=== PATIENT | male | born 1955 | race Caucasian/White ===

== ENCOUNTER 2022-01-26 22:46 | Inpatient (IN) | payer MEDICARE ==
[2022-01-26] MEDS ORDERED: Calcium Carbonate 500 MG ChewTAB PO PRN (22:48)
[2022-01-26] MEDS ORDERED: Ondansetron PF 4 MG/2 ML Vial IVP PRN (22:48)
[2022-01-27] MEDS ORDERED: metroNIDAZOLE 500 MG in Premix Bag 1 BAG IVPB SCH (06:00)
[2022-01-27 07:05] LABS: #Basophils 0.1 10x3/uL (0.0-0.2); #Eosinphils 0.7 10x3/uL (0.0-0.5); #Monocytes 0.8 10x3/uL (0.0-1.1); #Neutrophils 6.8 10x3/uL (1.5-8.4); %Basophils 0.6 % (0.0-2.0); %Eosinophils 7.3 % (0.0-6.0); %Monocytes 9.3 % (0.0-10.0); %Neutrophils 75.6 % (40.0-75.0); ALT (SGPT) 8 U/L (8-55); AST (SGOT) 21 U/L (5-34); Alkaline Phosphatase 55 U/L (40-110); Anion Gap 14 mmol/L (10-20); BUN (Urea Nitrogen) 21 mg/dL (8.4-25.7); Bilirubin, Total 0.4 mg/dL (0.2-1.2); Calc. Creatinine Clearance 54 mL/min (70-130); Calcium 8.1 mg/dL (7.8-10.44); Carbon Dioxide 25 mmol/L (23-31); Cardiac Risk 2.4 (Less than 4.5); Chloride 109 mmol/L (98-107); Cholesterol 116 mg/dl (< 200 Desired); Globulin 1.5 g/dL (2.4-3.5); Glucose 71 mg/dL (80-115); HDL Cholesterol 48 mg/dL (>60 Neg Risk); Hemoglobin 11.2 g/dL (13.5-17.5); LDL Cholesterol, Calculated 52 mg/dL; Mean Corpuscular HGB CONC 34.5 g/dL (32.0-36.0); Mean Corpuscular Hemoglobin 29.6 pg (27.0-33.0); Mean Corpuscular Volume 85.8 fl (81.2-95.1); Mean Platelet Volume 12.4 fl (7.4-10.4); Platelet Count 131 10x3/uL (150-450); Potassium 3.6 mmol/L (3.5-5.1); Protein, Total 4.5 g/dL (5.8-8.1); RBC Distribution Width 14.7 % (11.5-14.5); Red Blood Cell (RBC) Count 3.79 10x6/uL (4.32-5.72); Sodium 144 mmol/L (136-145); Triglycerides 78 mg/dL (Less than 150)
[2022-01-27 07:06] LABS: CK (CPK) 59 U/L (30-200); CRP (Inflammatory) 9.15 mg/dL (= or < 0.5); Magnesium 1.6 mg/dL (1.6-2.6)
[2022-01-27 08:04] LABS: CKMB 9.1 ng/mL (0-6.6)
[2022-01-27] MEDS: Carvedilol 6.25 MG TAB PO SCH ×2 (08:28→16:32)
[2022-01-27] MEDS: Enoxaparin Sodium 80 MG/0.8 ML SYRINGE SC SCH ×2 (08:29→20:41)
[2022-01-27] MEDS: FLUoxetine HCl 20 MG CAP PO SCH (08:29)
[2022-01-27] MEDS: Allopurinol 100 MG TAB PO SCH (08:29)
[2022-01-27] MEDS: Aspirin 81 mg Enteric Coated Tablet PO SCH (08:29)
[2022-01-27] MEDS ORDERED: cefTRIAXone\\ROCEPHIN 2 GM in Sodium Chloride 0.9% 100 ML IVPB SCH (09:00)
[2022-01-27] MEDS ORDERED: Clopidogrel Bisulfate 75 MG TAB PO SCH (09:00)
[2022-01-27] MEDS: Vancomycin 25 MG/ML Oral SOLN PO SCH ×2 (12:07→17:25)
[2022-01-27] MEDS ORDERED: hydrALAZINE 20 MG/ML VIAL SLOW IVP PRN (15:08)
[2022-01-27] MEDS: Rosuvastatin 20 MG TAB PO SCH (20:41)
[2022-01-27] MEDS: Tamsulosin HCl 0.4 MG CAP PO SCH (20:41)
[2022-01-28] MEDS: Vancomycin 25 MG/ML Oral SOLN PO SCH ×4 (01:05→17:00)
[2022-01-28 04:43] LABS: #Basophils 0.1 10x3/uL (0.0-0.2); #Eosinphils 0.5 10x3/uL (0.0-0.5); #Monocytes 0.6 10x3/uL (0.0-1.1); #Neutrophils 2.8 10x3/uL (1.5-8.4); %Eosinophils 10.6 % (0.0-6.0); %Lymphocytes 20.2 % (18.0-47.0); %Monocytes 12.5 % (0.0-10.0); %Neutrophils 55.3 % (40.0-75.0); Hemoglobin 9.9 g/dL (13.5-17.5); Mean Corpuscular HGB CONC 32.7 g/dL (32.0-36.0); Mean Corpuscular Hemoglobin 28.9 pg (27.0-33.0); Mean Corpuscular Volume 88.3 fl (81.2-95.1); Mean Platelet Volume 12.4 fl (7.4-10.4); Platelet Count 130 10x3/uL (150-450); RBC Distribution Width 14.1 % (11.5-14.5); Red Blood Cell (RBC) Count 3.43 10x6/uL (4.32-5.72); White Blood Cell (WBC) Count 5.1 10x3/uL (3.5-10.5)
[2022-01-28 04:58] LABS: Anion Gap 13 mmol/L (10-20); BUN (Urea Nitrogen) 17 mg/dL (8.4-25.7); Calc. Creatinine Clearance 61 mL/min (70-130); Calcium 8.1 mg/dL (7.8-10.44); Carbon Dioxide 24 mmol/L (23-31); Chloride 108 mmol/L (98-107); Glucose 71 mg/dL (80-115); Potassium 3.5 mmol/L (3.5-5.1); Sodium 141 mmol/L (136-145)
[2022-01-28] MEDS: Carvedilol 6.25 MG TAB PO SCH ×2 (08:12→17:00)
[2022-01-28] MEDS: Aspirin 81 mg Enteric Coated Tablet PO SCH (08:12)
[2022-01-28] MEDS: Allopurinol 100 MG TAB PO SCH (08:12)
[2022-01-28] MEDS: FLUoxetine HCl 20 MG CAP PO SCH (08:12)
[2022-01-28] MEDS: Enoxaparin Sodium 80 MG/0.8 ML SYRINGE SC SCH ×2 (08:12→21:56)
[2022-01-28] MEDS ORDERED: Enoxaparin Sodium 80 MG/0.8 ML SYRINGE ONE (08:14)
[2022-01-28] MEDS ORDERED: Potassium Chloride 20 MEQ TAB PO SCH (12:00)
[2022-01-28] MEDS: Rosuvastatin 20 MG TAB PO SCH (21:56)
[2022-01-28] MEDS: Tamsulosin HCl 0.4 MG CAP PO SCH (21:56)
[2022-01-29] MEDS: Vancomycin 25 MG/ML Oral SOLN PO SCH ×5 (00:25→23:11)
[2022-01-29 05:23] LABS: #Eosinphils 0.3 10x3/uL (0.0-0.5); #Monocytes 0.4 10x3/uL (0.0-1.1); #Neutrophils 1.7 10x3/uL (1.5-8.4); %Basophils 0.8 % (0.0-2.0); %Eosinophils 9.6 % (0.0-6.0); %Lymphocytes 30.1 % (18.0-47.0); %Monocytes 12.4 % (0.0-10.0); %Neutrophils 46.8 % (40.0-75.0); Hemoglobin 10.7 g/dL (13.5-17.5); Mean Corpuscular HGB CONC 34.7 g/dL (32.0-36.0); Mean Corpuscular Hemoglobin 29.2 pg (27.0-33.0); Mean Corpuscular Volume 83.9 fl (81.2-95.1); Mean Platelet Volume 12.4 fl (7.4-10.4); Platelet Count 153 10x3/uL (150-450); RBC Distribution Width 14.1 % (11.5-14.5); Red Blood Cell (RBC) Count 3.67 10x6/uL (4.32-5.72); White Blood Cell (WBC) Count 3.6 10x3/uL (3.5-10.5)
[2022-01-29 05:27] LABS: Anion Gap 13 mmol/L (10-20); BUN (Urea Nitrogen) 14 mg/dL (8.4-25.7); Calc. Creatinine Clearance 67 mL/min (70-130); Calcium 8.2 mg/dL (7.8-10.44); Carbon Dioxide 25 mmol/L (23-31); Chloride 108 mmol/L (98-107); Glucose 72 mg/dL (80-115); Potassium 3.7 mmol/L (3.5-5.1); Sodium 142 mmol/L (136-145)
[2022-01-29] MEDS: Allopurinol 100 MG TAB PO SCH (08:57)
[2022-01-29] MEDS: Enoxaparin Sodium 80 MG/0.8 ML SYRINGE SC SCH ×2 (08:57→21:48)
[2022-01-29] MEDS: HYDROcodone/Acetaminophen 5/325 mg Tablet PO PRN (08:57)
[2022-01-29] MEDS: FLUoxetine HCl 20 MG CAP PO SCH (08:57)
[2022-01-29] MEDS: Carvedilol 6.25 MG TAB PO SCH ×2 (08:57→16:04)
[2022-01-29] MEDS: Aspirin 81 mg Enteric Coated Tablet PO SCH (08:58)
[2022-01-29] MEDS ORDERED: Magnesium 2 GM/50 ML(in water) 2 GM in Premix Bag 1 BAG IVPB SCH (12:00)
[2022-01-29] MEDS ORDERED: Potassium Chloride 20 MEQ TAB PO SCH (12:00)
[2022-01-29] MEDS: Rosuvastatin 20 MG TAB PO SCH (21:48)
[2022-01-29] MEDS: Tamsulosin HCl 0.4 MG CAP PO SCH (21:48)
[2022-01-30 05:25] LABS: #Eosinphils 0.3 10x3/uL (0.0-0.5); #Monocytes 0.3 10x3/uL (0.0-1.1); #Neutrophils 1.6 10x3/uL (1.5-8.4); %Basophils 1.2 % (0.0-2.0); %Eosinophils 7.2 % (0.0-6.0); %Lymphocytes 35.5 % (18.0-47.0); %Monocytes 9.8 % (0.0-10.0); Hemoglobin 10.7 g/dL (13.5-17.5); Mean Corpuscular HGB CONC 35.4 g/dL (32.0-36.0); Mean Corpuscular Hemoglobin 29.5 pg (27.0-33.0); Mean Corpuscular Volume 83.2 fl (81.2-95.1); Mean Platelet Volume 11.9 fl (7.4-10.4); Platelet Count 173 10x3/uL (150-450); RBC Distribution Width 13.8 % (11.5-14.5); Red Blood Cell (RBC) Count 3.63 10x6/uL (4.32-5.72); White Blood Cell (WBC) Count 3.5 10x3/uL (3.5-10.5)
[2022-01-30] MEDS: Vancomycin 25 MG/ML Oral SOLN PO SCH ×4 (05:27→23:51)
[2022-01-30 05:39] LABS: Anion Gap 11 mmol/L (10-20); BUN (Urea Nitrogen) 12 mg/dL (8.4-25.7); Calc. Creatinine Clearance 70 mL/min (70-130); Calcium 8.1 mg/dL (7.8-10.44); Carbon Dioxide 27 mmol/L (23-31); Chloride 108 mmol/L (98-107); Glucose 86 mg/dL (80-115); Potassium 3.3 mmol/L (3.5-5.1); Sodium 143 mmol/L (136-145)
[2022-01-30] MEDS: FLUoxetine HCl 20 MG CAP PO SCH (08:42)
[2022-01-30] MEDS: Enoxaparin Sodium 80 MG/0.8 ML SYRINGE SC SCH ×2 (08:42→20:42)
[2022-01-30] MEDS: HYDROcodone/Acetaminophen 5/325 mg Tablet PO PRN (08:42)
[2022-01-30] MEDS: Amlodipine 5 MG TAB PO SCH (08:42)
[2022-01-30] MEDS: Allopurinol 100 MG TAB PO SCH (08:43)
[2022-01-30] MEDS: Aspirin 81 mg Enteric Coated Tablet PO SCH (08:43)
[2022-01-30] MEDS: Lisinopril 20 MG TAB PO SCH ×2 (08:43→20:56)
[2022-01-30] MEDS: Carvedilol 6.25 MG TAB PO SCH ×2 (08:43→16:39)
[2022-01-30] MEDS ORDERED: Non-Formulary Medication 1 EACH (Hydralazine Hcl [Hydralazine Hcl] 50 MG Tablet) PO SCH (09:00)
[2022-01-30] MEDS ORDERED: Potassium Chloride 20 MEQ TAB PO SCH (09:00)
[2022-01-30 09:09] LABS: Magnesium 1.7 mg/dL (1.6-2.6)
[2022-01-30] MEDS: Tamsulosin HCl 0.4 MG CAP PO SCH (20:42)
[2022-01-30] MEDS: Rosuvastatin 20 MG TAB PO SCH (20:43)
[2022-01-31] MEDS: Vancomycin 25 MG/ML Oral SOLN PO SCH ×3 (05:00→17:28)
[2022-01-31 05:27] LABS: Anion Gap 13 mmol/L (10-20); BUN (Urea Nitrogen) 14 mg/dL (8.4-25.7); Calc. Creatinine Clearance 73 mL/min (70-130); Carbon Dioxide 26 mmol/L (23-31); Chloride 107 mmol/L (98-107); Potassium 3.6 mmol/L (3.5-5.1); Sodium 142 mmol/L (136-145)
[2022-01-31 05:28] LABS: Calcium 8.4 mg/dL (7.8-10.44); Glucose 80 mg/dL (80-115)
[2022-01-31] MEDS ORDERED: Magnesium 2 GM/50 ML(in water) 2 GM in Premix Bag 1 BAG IVPB SCH (08:15)
[2022-01-31] MEDS: Carvedilol 6.25 MG TAB PO SCH ×2 (09:21→17:27)
[2022-01-31] MEDS: FLUoxetine HCl 20 MG CAP PO SCH (09:21)
[2022-01-31] MEDS: Amlodipine 5 MG TAB PO SCH (09:22)
[2022-01-31] MEDS: Aspirin 81 mg Enteric Coated Tablet PO SCH (09:22)
[2022-01-31] MEDS: Allopurinol 100 MG TAB PO SCH (09:23)
[2022-01-31] MEDS: Lisinopril 20 MG TAB PO SCH ×2 (09:23→21:45)
[2022-01-31] MEDS: Enoxaparin Sodium 80 MG/0.8 ML SYRINGE SC SCH ×2 (09:23→21:44)
[2022-01-31] MEDS ORDERED: Amlodipine 5 MG TAB PO SCH (10:30)
[2022-01-31] MEDS ORDERED: Potassium Chloride 20 MEQ TAB PO SCH (13:45)
[2022-01-31] MEDS: Tamsulosin HCl 0.4 MG CAP PO SCH (21:44)
[2022-01-31] MEDS: Rosuvastatin 20 MG TAB PO SCH (21:45)
[2022-01-31 23:37] LABS: Mycoplasma pneumoniae IgG AB 271 U/mL (0-99); Mycoplasma pneumoniae IgM AB Less than 770 U/mL (0-769)
[2022-02-01] MEDS: Vancomycin 25 MG/ML Oral SOLN PO SCH ×4 (00:42→18:35)
[2022-02-01] MEDS: Amlodipine 5 MG TAB PO SCH (08:00)
[2022-02-01] MEDS: Carvedilol 6.25 MG TAB PO SCH ×2 (08:00→18:35)
[2022-02-01] MEDS: Aspirin 81 mg Enteric Coated Tablet PO SCH (08:00)
[2022-02-01] MEDS: FLUoxetine HCl 20 MG CAP PO SCH (08:01)
[2022-02-01] MEDS: Enoxaparin Sodium 80 MG/0.8 ML SYRINGE SC SCH ×2 (08:01→21:08)
[2022-02-01] MEDS: Allopurinol 100 MG TAB PO SCH (08:01)
[2022-02-01] MEDS: Lisinopril 20 MG TAB PO SCH ×2 (08:01→21:08)
[2022-02-01] MEDS: Amlodipine 10 MG TAB PO SCH (09:42)
[2022-02-01] MEDS ORDERED: Potassium Chloride 20 MEQ TAB PO SCH (10:15)
[2022-02-01] MEDS: Rosuvastatin 20 MG TAB PO SCH (21:08)
[2022-02-01] MEDS: Tamsulosin HCl 0.4 MG CAP PO SCH (21:08)
[2022-02-02] MEDS: Vancomycin 25 MG/ML Oral SOLN PO SCH ×5 (00:51→23:32)
[2022-02-02 10:00] LABS: Mean Corpuscular HGB CONC 34.5 g/dL (32.0-36.0); Mean Corpuscular Hemoglobin 29.1 pg (27.0-33.0); Mean Corpuscular Volume 84.5 fl (81.2-95.1); Mean Platelet Volume 11.9 fl (7.4-10.4); Platelet Count 218 10x3/uL (150-450); RBC Distribution Width 13.5 % (11.5-14.5); Red Blood Cell (RBC) Count 4.12 10x6/uL (4.32-5.72); White Blood Cell (WBC) Count 3.7 10x3/uL (3.5-10.5)
[2022-02-02] MEDS: Aspirin 81 mg Enteric Coated Tablet PO SCH (10:03)
[2022-02-02] MEDS: Amlodipine 10 MG TAB PO SCH (10:03)
[2022-02-02] MEDS: FLUoxetine HCl 20 MG CAP PO SCH (10:03)
[2022-02-02] MEDS: Lisinopril 20 MG TAB PO SCH ×2 (10:03→20:49)
[2022-02-02] MEDS: Carvedilol 6.25 MG TAB PO SCH ×2 (10:03→16:59)
[2022-02-02 10:04] LABS: Anion Gap 15 mmol/L (10-20); BUN (Urea Nitrogen) 18 mg/dL (8.4-25.7); Calc. Creatinine Clearance 76 mL/min (70-130); Carbon Dioxide 23 mmol/L (23-31); Chloride 107 mmol/L (98-107); Glucose 86 mg/dL (80-115); Magnesium 1.6 mg/dL (1.6-2.6); Potassium 4.5 mmol/L (3.5-5.1); Sodium 140 mmol/L (136-145)
[2022-02-02] MEDS: Enoxaparin Sodium 80 MG/0.8 ML SYRINGE SC SCH (10:04)
[2022-02-02] MEDS: Allopurinol 100 MG TAB PO SCH (10:04)
[2022-02-02] MEDS ORDERED: Magnesium 2 GM/50 ML(in water) 2 GM in Premix Bag 1 BAG IVPB SCH (11:15)
[2022-02-02] MEDS: Tamsulosin HCl 0.4 MG CAP PO SCH (20:48)
[2022-02-02] MEDS: Rosuvastatin 20 MG TAB PO SCH (20:49)
[2022-02-02] MEDS: Acetaminophen 325 MG TAB PO PRN (20:49)
[2022-02-03] MEDS: Vancomycin 25 MG/ML Oral SOLN PO SCH ×3 (05:51→18:04)
[2022-02-03] MEDS: Acetaminophen 325 MG TAB PO PRN (05:51)
[2022-02-03] MEDS ORDERED: Enoxaparin Sodium 40 MG/0.4 ML SYRINGE ONE (09:05)
[2022-02-03] MEDS: Enoxaparin Sodium 40 MG/0.4 ML SYRINGE SC SCH (09:10)
[2022-02-03] MEDS: FLUoxetine HCl 20 MG CAP PO SCH (09:10)
[2022-02-03] MEDS: Lisinopril 20 MG TAB PO SCH ×2 (09:12→20:43)
[2022-02-03] MEDS: Aspirin 81 mg Enteric Coated Tablet PO SCH (09:13)
[2022-02-03] MEDS: Amlodipine 10 MG TAB PO SCH (09:13)
[2022-02-03] MEDS: Allopurinol 100 MG TAB PO SCH (09:13)
[2022-02-03] MEDS: Carvedilol 6.25 MG TAB PO SCH ×2 (09:13→18:00)
[2022-02-03 15:06] VITALS: BMI 28.8
[2022-02-03] MEDS: Tamsulosin HCl 0.4 MG CAP PO SCH (20:44)
[2022-02-03] MEDS: Rosuvastatin 20 MG TAB PO SCH (20:44)
[2022-02-04] MEDS: Vancomycin 25 MG/ML Oral SOLN PO SCH ×4 (00:22→17:44)
[2022-02-04] MEDS: Lisinopril 20 MG TAB PO SCH ×2 (09:50→20:19)
[2022-02-04] MEDS: Enoxaparin Sodium 40 MG/0.4 ML SYRINGE SC SCH (09:50)
[2022-02-04] MEDS: FLUoxetine HCl 20 MG CAP PO SCH (09:50)
[2022-02-04] MEDS: Carvedilol 6.25 MG TAB PO SCH ×2 (09:51→17:43)
[2022-02-04] MEDS: Amlodipine 10 MG TAB PO SCH (09:51)
[2022-02-04] MEDS: Aspirin 81 mg Enteric Coated Tablet PO SCH (09:51)
[2022-02-04] MEDS: Allopurinol 100 MG TAB PO SCH (09:51)
[2022-02-04] MEDS: Tamsulosin HCl 0.4 MG CAP PO SCH (20:11)
[2022-02-04] MEDS: Rosuvastatin 20 MG TAB PO SCH (20:11)
[2022-02-04] MEDS: Acetaminophen 325 MG TAB PO PRN (20:11)
[2022-02-05] MEDS: Vancomycin 25 MG/ML Oral SOLN PO SCH ×5 (00:03→23:36)
[2022-02-05] MEDS: Enoxaparin Sodium 40 MG/0.4 ML SYRINGE SC SCH (08:54)
[2022-02-05] MEDS: Lisinopril 20 MG TAB PO SCH ×2 (08:54→20:15)
[2022-02-05] MEDS: Carvedilol 6.25 MG TAB PO SCH ×2 (08:55→18:33)
[2022-02-05] MEDS: Aspirin 81 mg Enteric Coated Tablet PO SCH (08:55)
[2022-02-05] MEDS: FLUoxetine HCl 20 MG CAP PO SCH (08:55)
[2022-02-05] MEDS: Amlodipine 10 MG TAB PO SCH (08:55)
[2022-02-05] MEDS: Allopurinol 100 MG TAB PO SCH (08:55)
[2022-02-05] MEDS: Acetaminophen 325 MG TAB PO PRN (14:51)
[2022-02-05] MEDS: Tamsulosin HCl 0.4 MG CAP PO SCH (20:15)
[2022-02-05] MEDS: Rosuvastatin 20 MG TAB PO SCH (20:15)
[2022-02-06 04:04] LABS: #Basophils 0.1 10x3/uL (0.0-0.2); #Eosinphils 0.2 10x3/uL (0.0-0.5); #Monocytes 0.4 10x3/uL (0.0-1.1); %Basophils 1.3 % (0.0-2.0); %Lymphocytes 34.1 % (18.0-47.0); %Monocytes 8.8 % (0.0-10.0); %Neutrophils 51.3 % (40.0-75.0); Hemoglobin 10.3 g/dL (13.5-17.5); Mean Corpuscular Hemoglobin 29.2 pg (27.0-33.0); Mean Corpuscular Volume 85.8 fl (81.2-95.1); Mean Platelet Volume 11.5 fl (7.4-10.4); Platelet Count 187 10x3/uL (150-450); RBC Distribution Width 13.7 % (11.5-14.5); Red Blood Cell (RBC) Count 3.53 10x6/uL (4.32-5.72)
[2022-02-06 04:19] LABS: Anion Gap 14 mmol/L (10-20); BUN (Urea Nitrogen) 28 mg/dL (8.4-25.7); Calc. Creatinine Clearance 57 mL/min (70-130); Calcium 8.7 mg/dL (7.8-10.44); Carbon Dioxide 24 mmol/L (23-31); Chloride 106 mmol/L (98-107); Glucose 98 mg/dL (80-115); Potassium 4.2 mmol/L (3.5-5.1); Sodium 140 mmol/L (136-145)
[2022-02-06] MEDS: Vancomycin 25 MG/ML Oral SOLN PO SCH ×3 (05:20→18:06)
[2022-02-06] MEDS ORDERED: Lactated Ringer's 500 ML IV SCH ×2 (08:30→10:30)
[2022-02-06] MEDS: Enoxaparin Sodium 40 MG/0.4 ML SYRINGE SC SCH (10:15)
[2022-02-06] MEDS: Acetaminophen 325 MG TAB PO PRN ×2 (10:15→20:19)
[2022-02-06] MEDS: Aspirin 81 mg Enteric Coated Tablet PO SCH (10:16)
[2022-02-06] MEDS: Lisinopril 20 MG TAB PO SCH ×2 (10:16→20:19)
[2022-02-06] MEDS: Allopurinol 100 MG TAB PO SCH (10:16)
[2022-02-06] MEDS: FLUoxetine HCl 20 MG CAP PO SCH (10:17)
[2022-02-06] MEDS: Amlodipine 10 MG TAB PO SCH (10:17)
[2022-02-06] MEDS: Carvedilol 6.25 MG TAB PO SCH ×2 (10:17→18:06)
[2022-02-06] MEDS: Tamsulosin HCl 0.4 MG CAP PO SCH (20:19)
[2022-02-06] MEDS: Rosuvastatin 20 MG TAB PO SCH (20:19)
[2022-02-07] MEDS: Vancomycin 25 MG/ML Oral SOLN PO SCH ×3 (00:05→13:49)
[2022-02-07 05:26] LABS: #Basophils 0.1 10x3/uL (0.0-0.2); #Eosinphils 0.1 10x3/uL (0.0-0.5); #Monocytes 0.3 10x3/uL (0.0-1.1); #Neutrophils 1.4 10x3/uL (1.5-8.4); %Basophils 1.5 % (0.0-2.0); %Eosinophils 4.2 % (0.0-6.0); %Monocytes 8.6 % (0.0-10.0); %Neutrophils 42.1 % (40.0-75.0); Hemoglobin 10.1 g/dL (13.5-17.5); Mean Corpuscular HGB CONC 33.7 g/dL (32.0-36.0); Mean Corpuscular Volume 86.2 fl (81.2-95.1); Mean Platelet Volume 11.9 fl (7.4-10.4); Platelet Count 179 10x3/uL (150-450); RBC Distribution Width 13.7 % (11.5-14.5); Red Blood Cell (RBC) Count 3.48 10x6/uL (4.32-5.72); White Blood Cell (WBC) Count 3.4 10x3/uL (3.5-10.5)
[2022-02-07 05:42] LABS: Anion Gap 13 mmol/L (10-20); BUN (Urea Nitrogen) 28 mg/dL (8.4-25.7); Calc. Creatinine Clearance 57 mL/min (70-130); Calcium 8.6 mg/dL (7.8-10.44); Carbon Dioxide 25 mmol/L (23-31); Chloride 106 mmol/L (98-107); Glucose 77 mg/dL (80-115); Potassium 4.2 mmol/L (3.5-5.1); Sodium 140 mmol/L (136-145)
[2022-02-07] MEDS: Lisinopril 20 MG TAB PO SCH (08:50)
[2022-02-07] MEDS: Enoxaparin Sodium 40 MG/0.4 ML SYRINGE SC SCH (08:50)
[2022-02-07] MEDS: Allopurinol 100 MG TAB PO SCH (08:50)
[2022-02-07] MEDS: Carvedilol 6.25 MG TAB PO SCH (08:50)
[2022-02-07] MEDS: Amlodipine 10 MG TAB PO SCH (08:50)
[2022-02-07] MEDS: FLUoxetine HCl 20 MG CAP PO SCH (08:50)
[2022-02-07] MEDS: Aspirin 81 mg Enteric Coated Tablet PO SCH (08:51)
[2022-02-07 12:09] VITALS: BP 124/67; TEMP 98.2
[2022-02-08] MEDS ORDERED: Clopidogrel Bisulfate 75 MG TAB PO SCH (09:00)
== END 2022-02-07 14:30 | DRG 371 ==
LOC: CSHTELE 22:46
PROVIDERS: ADMIT Student in an Organized Health Care Education/Training Program; ATTEND Hospitalist
DX: A04.72 Enterocolitis due to Clostridium difficile, not specified as recurrent (principal); I21.4 Non-ST elevation (NSTEMI) myocardial infarction; K51.00 Ulcerative (chronic) pancolitis without complications; I50.32 Chronic diastolic (congestive) heart failure; I69.351 Hemiplegia and hemiparesis following cerebral infarction affecting right dominant side; I13.0 Hypertensive heart and chronic kidney disease with heart failure and stage 1 through stage 4 chronic kidney disease, or unspecified chronic kidney disease; N13.8 Other obstructive and reflux uropathy; N17.9 Acute kidney failure, unspecified; Q61.3 Polycystic kidney, unspecified; E87.6 Hypokalemia; E83.42 Hypomagnesemia; E78.2 Mixed hyperlipidemia; Z20.822 Contact with and (suspected) exposure to COVID-19; N18.31 Chronic kidney disease, stage 3a; M10.9 Gout, unspecified; F32.A Depression, unspecified; B35.6 Tinea cruris; I25.10 Atherosclerotic heart disease of native coronary artery without angina pectoris; N40.1 Benign prostatic hyperplasia with lower urinary tract symptoms; Z95.1 Presence of aortocoronary bypass graft; Z95.2 Presence of prosthetic heart valve; Z79.899 Other long term (current) drug therapy; Z79.82 Long term (current) use of aspirin; Z79.891 Long term (current) use of opiate analgesic; Z82.49 Family history of ischemic heart disease and other diseases of the circulatory system; Z90.89 Acquired absence of other organs
CPT/HCPCS: 36415; 80048; 80053; 80061; 82550; 82553; 83630; 83735; 83880; 84145; 84484; 85025; 85027; 85652; 86140; 87045; 87046; 87324; 87427; 87449; 93005; 93010; 93306; J0360; J1650; J3475; J7120

== ENCOUNTER 2022-04-13 23:03 | Inpatient (IN) | payer MEDICARE ==
[2022-04-14 00:14] VITALS: BMI 26.6
[2022-04-14] MEDS ORDERED: Calcium Carbonate 500 MG ChewTAB PO PRN (01:58)
[2022-04-14] MEDS ORDERED: Acetaminophen 325 MG TAB PO PRN (01:58)
[2022-04-14] MEDS ORDERED: Ondansetron ODT 4 MG TAB PO PRN (01:58)
[2022-04-14] MEDS ORDERED: Ondansetron PF 4 MG/2 ML Vial IVP PRN (01:58)
[2022-04-14] MEDS ORDERED: Potassium Chloride 20 MEQ TAB PO SCH (02:45)
[2022-04-14] MEDS ORDERED: Pantoprazole 40 MG VIAL IVP SCH (02:45)
[2022-04-14] MEDS ORDERED: Vancomycin 25 MG/ML Oral SOLN PO SCH ×2 (03:00→08:00)
[2022-04-14 05:44] LABS: Anion Gap 12 mmol/L (10-20); BUN (Urea Nitrogen) 29 mg/dL (8.4-25.7); Calc. Creatinine Clearance 47 mL/min (70-130); Calcium 8.5 mg/dL (7.8-10.44); Carbon Dioxide 18 mmol/L (23-31); Chloride 111 mmol/L (98-107); Estimated GFR 47; Glucose 82 mg/dL (80-115); Magnesium 1.5 mg/dL (1.6-2.6); Potassium 3.1 mmol/L (3.5-5.1); Sodium 138 mmol/L (136-145)
[2022-04-14 05:50] LABS: #Eosinphils 0.1 10x3/uL (0.0-0.5); #Monocytes 1.1 10x3/uL (0.0-1.1); #Neutrophils 5.5 10x3/uL (1.5-8.4); %Basophils 0.4 % (0.0-2.0); %Eosinophils 1.7 % (0.0-6.0); %Lymphocytes 13.2 % (18.0-47.0); %Monocytes 13.8 % (0.0-10.0); %Neutrophils 70.8 % (40.0-75.0); Hemoglobin 11.4 g/dL (13.5-17.5); Mean Corpuscular HGB CONC 34.7 g/dL (32.0-36.0); Mean Corpuscular Hemoglobin 28.3 pg (27.0-33.0); Mean Corpuscular Volume 81.6 fl (81.2-95.1); Mean Platelet Volume 12.5 fl (7.4-10.4); Platelet Count 125 10x3/uL (150-450); Red Blood Cell (RBC) Count 4.03 10x6/uL (4.32-5.72); White Blood Cell (WBC) Count 7.8 10x3/uL (3.5-10.5)
[2022-04-14] MEDS: Sodium Chloride 0.9% 1,000 ML IV SCH ×2 (05:50→17:17)
[2022-04-14] MEDS ORDERED: Magnesium 2 GM/50 ML(in water) 2 GM in Premix Bag 1 BAG IVPB SCH (06:00)
[2022-04-14] MEDS: Potassium Chloride 20 MEQ in Premix Bag 1 BAG IVPB SCH ×3 (08:45→14:37)
[2022-04-14] MEDS: Amlodipine 10 MG TAB PO SCH (08:46)
[2022-04-14] MEDS: FLUoxetine HCl 20 MG CAP PO SCH (08:46)
[2022-04-14] MEDS: Enoxaparin Sodium 40 MG/0.4 ML SYRINGE SC SCH (08:46)
[2022-04-14] MEDS: hydrALAZINE 25 MG TAB PO SCH ×3 (08:47→20:27)
[2022-04-14] MEDS: Hydrochlorothiazide 25 MG TAB PO SCH (08:47)
[2022-04-14] MEDS: Aspirin 81 mg Enteric Coated Tablet PO SCH (08:48)
[2022-04-14] MEDS: Pantoprazole 40 MG VIAL IVP SCH ×2 (08:48→20:28)
[2022-04-14] MEDS: Clopidogrel Bisulfate 75 MG TAB PO SCH (08:49)
[2022-04-14] MEDS ORDERED: Valsartan 80 MG TAB PO SCH (09:00)
[2022-04-14] MEDS ORDERED: Rosuvastatin 20 MG TAB PO SCH (09:00)
[2022-04-14] MEDS ORDERED: Potassium Chloride 10 MEQ TAB PO SCH (09:00)
[2022-04-14] MEDS: Vancomycin 25 MG/ML Oral SOLN PO SCH ×3 (14:23→22:21)
[2022-04-14] MEDS ORDERED: Potassium Chloride 20 MEQ in Premix Bag 1 BAG IVPB SCH (14:30)
[2022-04-15] MEDS: Sodium Chloride 0.9% 1,000 ML IV SCH (05:00)
[2022-04-15] MEDS: Vancomycin 25 MG/ML Oral SOLN PO SCH (05:00)
[2022-04-15] MEDS: Enoxaparin Sodium 40 MG/0.4 ML SYRINGE SC SCH (09:34)
[2022-04-15] MEDS: Aspirin 81 mg Enteric Coated Tablet PO SCH (09:35)
[2022-04-15] MEDS: Clopidogrel Bisulfate 75 MG TAB PO SCH (09:35)
[2022-04-15] MEDS: Amlodipine 10 MG TAB PO SCH (09:35)
[2022-04-15] MEDS: hydrALAZINE 25 MG TAB PO SCH (09:36)
[2022-04-15] MEDS: FLUoxetine HCl 20 MG CAP PO SCH (09:37)
[2022-04-15] MEDS: Hydrochlorothiazide 25 MG TAB PO SCH (09:37)
[2022-04-15] MEDS: Pantoprazole 40 MG VIAL IVP SCH (09:38)
[2022-04-15 10:55] LABS: #Eosinphils 0.2 10x3/uL (0.0-0.5); #Monocytes 0.6 10x3/uL (0.0-1.1); #Neutrophils 3.5 10x3/uL (1.5-8.4); %Basophils 0.4 % (0.0-2.0); %Eosinophils 4.1 % (0.0-6.0); %Lymphocytes 16.5 % (18.0-47.0); %Monocytes 11.2 % (0.0-10.0); %Neutrophils 67.4 % (40.0-75.0); Hemoglobin 11.4 g/dL (13.5-17.5); Mean Corpuscular HGB CONC 35.4 g/dL (32.0-36.0); Mean Corpuscular Hemoglobin 28.9 pg (27.0-33.0); Mean Corpuscular Volume 81.7 fl (81.2-95.1); Mean Platelet Volume 12.5 fl (7.4-10.4); Platelet Count 126 10x3/uL (150-450); RBC Distribution Width 12.9 % (11.5-14.5); Red Blood Cell (RBC) Count 3.94 10x6/uL (4.32-5.72); White Blood Cell (WBC) Count 5.2 10x3/uL (3.5-10.5)
[2022-04-15 11:01] LABS: Anion Gap 9 mmol/L (10-20); BUN (Urea Nitrogen) 22 mg/dL (8.4-25.7); Calc. Creatinine Clearance 50 mL/min (70-130); Calcium 8.4 mg/dL (7.8-10.44); Carbon Dioxide 21 mmol/L (23-31); Chloride 112 mmol/L (98-107); Estimated GFR 50; Glucose 114 mg/dL (80-115); Potassium 3.5 mmol/L (3.5-5.1); Sodium 138 mmol/L (136-145)
[2022-04-15 16:06] VITALS: BP 137/63; TEMP 98.2
== END 2022-04-15 18:54 | disposition home or self-care (01) | DRG 372 ==
LOC: CSHTELE 23:03 → OBSVTOIN 04-14 01:58
PROVIDERS: ADMIT Student in an Organized Health Care Education/Training Program; ATTEND Internal Medicine
DX: A04.72 Enterocolitis due to Clostridium difficile, not specified as recurrent (principal); Q61.3 Polycystic kidney, unspecified; I50.32 Chronic diastolic (congestive) heart failure; I25.10 Atherosclerotic heart disease of native coronary artery without angina pectoris; N40.0 Benign prostatic hyperplasia without lower urinary tract symptoms; K80.20 Calculus of gallbladder without cholecystitis without obstruction; E87.6 Hypokalemia; N18.32 Chronic kidney disease, stage 3b; D63.1 Anemia in chronic kidney disease; I25.2 Old myocardial infarction; Z95.2 Presence of prosthetic heart valve; Z95.1 Presence of aortocoronary bypass graft; Z79.899 Other long term (current) drug therapy; Z79.82 Long term (current) use of aspirin; Z86.73 Personal history of transient ischemic attack (TIA), and cerebral infarction without residual deficits; Z90.49 Acquired absence of other specified parts of digestive tract; Z89.022 Acquired absence of left finger(s); Z87.891 Personal history of nicotine dependence
CPT/HCPCS: 36415; 80048; 83735; 85025; C9113; J1650; J3475; J3480; J7050

== ENCOUNTER 2023-03-20 15:33 | Inpatient (IN) | payer MEDICARE ==
[2023-03-20] MEDS ORDERED: Ondansetron PF 4 MG/2 ML Vial IVP PRN (15:55)
[2023-03-20 16:27] VITALS: BMI 25.2
[2023-03-20] MEDS: HYDROcodone/Acetaminophen 5/325 mg Tablet PO PRN ×2 (17:18→21:50)
[2023-03-20] MEDS: Senokot S 8.6-50 MG TAB PO SCH (21:50)
[2023-03-21] MEDS ORDERED: Acetaminophen 325 MG TAB PO SCH (01:00)
[2023-03-21] MEDS ORDERED: Amlodipine 5 MG TAB PO SCH (01:15)
[2023-03-21 04:56] LABS: #Eosinphils 0.1 10x3/uL (0.0-0.5); #Monocytes 0.4 10x3/uL (0.0-1.1); #Neutrophils 3.2 10x3/uL (1.5-8.4); %Basophils 0.6 % (0.0-2.0); %Eosinophils 2.6 % (0.0-6.0); %Lymphocytes 24.1 % (18.0-47.0); %Monocytes 8.7 % (0.0-10.0); %Neutrophils 63.6 % (40.0-75.0); Hemoglobin 8.8 g/dL (13.5-17.5); Mean Corpuscular HGB CONC 33.2 g/dL (32.0-36.0); Mean Corpuscular Volume 87.5 fl (81.2-95.1); Mean Platelet Volume 12.5 fl (7.4-10.4); Platelet Count 88 10x3/uL (150-450); Red Blood Cell (RBC) Count 3.03 10x6/uL (4.32-5.72)
[2023-03-21 05:12] LABS: Anion Gap 13 mmol/L (10-20); BUN (Urea Nitrogen) 29 mg/dL (8.4-25.7); Calc. Creatinine Clearance 43 mL/min (70-130); Calcium 8.1 mg/dL (7.8-10.44); Carbon Dioxide 20 mmol/L (23-31); Chloride 110 mmol/L (98-107); Estimated GFR 40; Glucose 79 mg/dL (80-115); Potassium 4.5 mmol/L (3.5-5.1); Sodium 138 mmol/L (136-145)
[2023-03-21] MEDS: FLUoxetine HCl 20 MG CAP PO SCH (09:09)
[2023-03-21] MEDS: Empagliflozin 10 MG TAB PO SCH (09:09)
[2023-03-21] MEDS: Amlodipine 10 MG TAB PO SCH (09:10)
[2023-03-21] MEDS: Senokot S 8.6-50 MG TAB PO SCH ×2 (09:19→21:46)
[2023-03-21] MEDS: HYDROcodone/Acetaminophen 5/325 mg Tablet PO PRN ×2 (09:23→16:03)
[2023-03-21] MEDS: Rosuvastatin 20 MG TAB PO SCH (21:45)
[2023-03-22] MEDS: Senokot S 8.6-50 MG TAB PO SCH ×2 (08:50→20:08)
[2023-03-22] MEDS: Empagliflozin 10 MG TAB PO SCH (08:50)
[2023-03-22] MEDS: FLUoxetine HCl 20 MG CAP PO SCH (08:50)
[2023-03-22] MEDS: Amlodipine 10 MG TAB PO SCH (08:50)
[2023-03-22] MEDS: HYDROcodone/Acetaminophen 5/325 mg Tablet PO PRN ×2 (11:24→18:55)
[2023-03-22] MEDS: Rosuvastatin 20 MG TAB PO SCH (20:08)
[2023-03-23] MEDS ORDERED: hydrALAZINE 25 MG TAB PO PRN (07:55)
[2023-03-23] MEDS: FLUoxetine HCl 20 MG CAP PO SCH (08:46)
[2023-03-23] MEDS: Senokot S 8.6-50 MG TAB PO SCH ×2 (08:46→20:25)
[2023-03-23] MEDS: Empagliflozin 10 MG TAB PO SCH (08:46)
[2023-03-23] MEDS: Amlodipine 10 MG TAB PO SCH (08:46)
[2023-03-23] MEDS: Rosuvastatin 20 MG TAB PO SCH (20:23)
[2023-03-23] MEDS: HYDROcodone/Acetaminophen 5/325 mg Tablet PO PRN (20:24)
[2023-03-24] MEDS: HYDROcodone/Acetaminophen 5/325 mg Tablet PO PRN (08:14)
[2023-03-24] MEDS: Senokot S 8.6-50 MG TAB PO SCH (08:16)
[2023-03-24] MEDS: Amlodipine 10 MG TAB PO SCH (08:16)
[2023-03-24] MEDS: FLUoxetine HCl 20 MG CAP PO SCH (08:16)
[2023-03-24] MEDS: Empagliflozin 10 MG TAB PO SCH (08:17)
[2023-03-24 16:01] VITALS: BP 145/67; TEMP 97.8
== END 2023-03-24 16:39 | DRG 538 ==
LOC: INTOOBSV 15:33 → CSHTELE 15:33 → OBSVTOIN 03-22 17:53
PROVIDERS: ADMIT Family Medicine; ATTEND Internal Medicine
DX: S76.011A Strain of muscle, fascia and tendon of right hip, initial encounter (principal); M25.551 Pain in right hip; I10 Essential (primary) hypertension; N40.0 Benign prostatic hyperplasia without lower urinary tract symptoms; S70.01XA Contusion of right hip, initial encounter; E11.9 Type 2 diabetes mellitus without complications; E78.5 Hyperlipidemia, unspecified; W19.XXXA Unspecified fall, initial encounter; R00.1 Bradycardia, unspecified; I25.10 Atherosclerotic heart disease of native coronary artery without angina pectoris; Z95.1 Presence of aortocoronary bypass graft; Z79.899 Other long term (current) drug therapy; Z79.01 Long term (current) use of anticoagulants; Z86.73 Personal history of transient ischemic attack (TIA), and cerebral infarction without residual deficits
CPT/HCPCS: 36415; 80048; 85025; 94760; G0378